=== PATIENT | male | born 1945 | race Caucasian/White ===

== ENCOUNTER 2016-05-18 13:23 | Outpatient (CLI) | payer MEDICARE, OTHER ==
[2012-12-01 09:49] VITALS: BP 140/76
== END 2016-05-18 13:24 ==
LOC: POD 13:23
PROVIDERS: ATTEND Podiatrist
DX: B35.1 Tinea unguium (principal); M79.674 Pain in right toe(s); M79.675 Pain in left toe(s)
CPT/HCPCS: G0463

== ENCOUNTER 2016-08-03 13:00 | Outpatient (CLI) | payer MEDICARE, OTHER ==
[2012-12-01 09:49] VITALS: BP 140/76
== END 2016-08-03 13:15 | disposition home or self-care (01) ==
LOC: POD 13:00
PROVIDERS: ATTEND Podiatrist
DX: B35.1 Tinea unguium (principal); M79.675 Pain in left toe(s); M79.674 Pain in right toe(s)
CPT/HCPCS: 11721; G0463

== ENCOUNTER 2016-08-23 16:22 | Outpatient (CLI) | payer MEDICARE, OTHER ==
[2012-12-01 09:49] VITALS: BP 140/76
[2016-08-23 17:06] LABS: BASOPHILS % 0.6 (0.0-1.5); EOSINOPHILS % 1.2 % (0.0-6.8); MEAN CORPUSCULAR HEMOGLOBIN 23.2 pg (28.0-34.0); MEAN CORPUSCULAR VOLUME 75.6 fl (80.0-100.0); MONOCYTES % 5.8 % (0.0-11.0); NEUTROPHILS # 8.2 # k/uL (1.4-7.7)
[2016-08-23 17:22] LABS: eGFR (African) > 60; eGFR (Non-African) 58
--- NOTE | 2016-08-23 17:58 | Diagnostic Imaging Report ---
[facility] [address] [facility].[address] [address] Report Submission Date: Aug 23, 2016 5:28:11 PM CDT Patient Study Name: KOBY AGUERO Date: Aug 23, 2016 4:33:38 PM CDT Modality Type: CR Gender: M Description: CHEST : 43 Institution: [facility] Physician: BELKIS CHAMORRO - OP Examination: PA and lateral chest. History: Evaluate lung linton. Findings: PA lateral chest demonstrate a mildly prominent cardiac and mediastinal silhouette. Chronic appearing interstitial changes. No focal infiltrate. No effusion. No blunting of the costophrenic margins. Osseous structures are appropriate for age. Impression: Chronic changes. No acute pulmonary process. Electronically signed on Aug 23, 2016 5:28:11 PM CDT by: Cuauhtemoc BECERRA
== END 2016-08-23 16:23 ==
LOC: LAB 16:22
PROVIDERS: ATTEND Family Medicine
DX: R06.09 Other forms of dyspnea (principal); I48.91 Unspecified atrial fibrillation; I10 Essential (primary) hypertension; I50.22 Chronic systolic (congestive) heart failure; E11.9 Type 2 diabetes mellitus without complications
CPT/HCPCS: 71020; 80053; 83036; 83880; 85025

== ENCOUNTER 2017-01-19 15:40 | Outpatient (CLI) | payer MEDICARE, OTHER ==
[2012-12-01 09:49] VITALS: BP 140/76
--- NOTE | 2017-01-19 18:53 | Diagnostic Imaging Report ---
BELKIS CHAMORRO~ [facility] [id number] [facility] [address] [place], [place]. [address] ~ ~ ~ ~ Report Submission Date: Jan 19, 2017 4:42:46 PM [employer] Patient ~ Study Name: KOBY AGUERO ~ Date: Jan 19, 2017 3:57:07 PM [employer] ~ Modality Type: CT\SR Gender: M ~ Description: CT BRAIN W/O CONTRAST : 43 ~ Institution: [facility] Physician: BELKIS CHAMORRO ~ ~ ~ Examination: CT head without contrast History:~Dizzy Comparison exam: None available. Technique: Noncontrast head CT protocol. Findings: Ventricles and sulci are consistent for patient age. Cerebrocerebellar parenchyma demonstrates mild periventricular low attenuation consistent with small vessel disease. No evidence for parenchymal hemorrhage. No evidence for mass or mass effect. No midline shift. No extra axial fluid collections. Partial visualization of the paranasal sinuses demonstrates right maxillary mucous retention cyst. Mastoid air cells, orbits, skull and scalp without gross irregularity. Impression: Mild age related changes. No acute parenchymal process. No hemorrhage. ~ Electronically signed on Jan 19, 2017 4:42:46 PM [employer]ER by: Cuauhtemoc BECERRA
== END 2017-01-19 15:41 ==
LOC: RAD 15:40
PROVIDERS: ATTEND Family Medicine
DX: S06.0X1A Concussion with loss of consciousness of 30 minutes or less, initial encounter (principal)
CPT/HCPCS: 70450